=== PATIENT | male | born 1980 | race Caucasian/White ===

== ENCOUNTER 2016-06-02 08:00 | Outpatient (CLI) | payer MEDICAID | END 2016-06-02 08:01 | disposition home or self-care (01) | DX: E78.5 Hyperlipidemia, unspecified (principal) ==

== ENCOUNTER 2016-07-28 11:40 | Outpatient (CLI) | payer MEDICAID | END 2016-07-28 11:41 | disposition home or self-care (01) | DX: R30.0 Dysuria (principal); I10 Essential (primary) hypertension ==

== ENCOUNTER 2016-08-16 15:33 | Outpatient (CLI) | payer MEDICAID | END 2016-08-16 15:34 | disposition home or self-care (01) | DX: R30.0 Dysuria (principal) ==

== ENCOUNTER 2017-03-22 12:55 | Emergency (ER) | payer MEDICAID ==
[2017-03-22] MEDS ORDERED: ONDANSETRON 4 MG/2 ML VIAL IVP STA (13:01)
[2017-03-22] MEDS ORDERED: SODIUM CHLORIDE 0.9% 1,000 ML IV ONE (13:01)
[2017-03-22] MEDS ORDERED: KETOROLAC 60 MG/2 ML VIAL IVP STA (13:01)
[2017-03-22] MEDS ORDERED: HALOPERIDOL 5 MG/ML VIAL IVP ONE (13:04)
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
[2017-03-22] MEDS ORDERED: KETOROLAC 30 MG/ML VIAL ONE (13:07)
[2017-03-22] MEDS ORDERED: ONDANSETRON 4 MG/2 ML VIAL ONE (13:07)
[2017-03-22 13:20] LABS: BASOPHILS # (AUTO) 0.1 10^3/uL (0.0-0.1); BASOPHILS % (AUTO) 1.6 %; EOSINOPHILS % (AUTO) 0.4 %; HCT - HEMATOCRIT 48.3 % (42.0-52.0); HGB - HEMOGLOBIN 16.5 g/dL (14.0-18.0); LYMPHOCYTES # (AUTO) 2.9 10^3/uL (1.5-3.5); LYMPHOCYTES % (AUTO) 31.9 %; MEAN CORPUSCULAR HEMOGLOBIN 29.1 pg (27.0-31.0); MEAN CORPUSCULAR HGB CONC 34.1 g/dL (32.0-36.0); MEAN CORPUSCULAR VOLUME 85.2 fL (80.0-94.0); MEAN PLATELET VOLUME 7.4 fL (7.4-11.4); MONOCYTES # (AUTO) 0.5 10^3/uL (0.0-1.0); MONOCYTES % (AUTO) 5.8 %; NEUTROPHILS # (AUTO) 5.5 10^3/uL (1.5-6.6); NEUTROPHILS % (AUTO) 60.3 %; RED BLOOD COUNT 5.67 10^6/uL (4.70-6.10); RED CELL DISTRIBUTION WIDTH 12.5 % (12.0-15.0); UNCORRECTED WHITE BLOOD COUNT 9.1 x10^3/uL; WHITE BLOOD COUNT 9.1 x10^3/uL (4.8-10.8)
[2017-03-22] MEDS ORDERED: HALOPERIDOL 5 MG/ML VIAL ONE (13:20)
[2017-03-22] MEDS ORDERED: LORazepam 2 MG/ML SYRINGE IVP STA (13:28)
[2017-03-22] MEDS ORDERED: LIDOCAINE TOPICAL 4% 50 ML BOTTLE MM STA (13:28)
[2017-03-22] MEDS ORDERED: MAG HYDROX/AL HYDROX/SIMETH 30 ML UDC PO STA (13:28)
[2017-03-22] MEDS ORDERED: ACETAMINOPHEN 1,000 MG/100 ML 100 ML IV STA (13:28)
[2017-03-22 13:34] LABS: ALBUMIN/GLOBULIN RATIO 1.2 (1.0-2.2); BILIRUBIN,TOTAL 0.7 mg/dL (0.2-1.0); CALCIUM 10.5 mg/dL (8.5-10.3); CREATININE 1.1 mg/dL (0.6-1.2); POTASSIUM 3.7 mmol/L (3.5-5.0); TOTAL PROTEIN 8.8 g/dL (6.7-8.2)
[2017-03-22] MEDS ORDERED: LORazepam 2 MG/ML SYRINGE ONE (13:48)
[2017-03-22] MEDS ORDERED: LIDOCAINE VISCOUS 2% 15 ML UDC MM ONE (13:49)
[2017-03-22] MEDS ORDERED: MAG HYDROX/AL HYDROX/SIMETH 30 ML UDC ONE (13:49)
[2017-03-22] MEDS ORDERED: ACETAMINOPHEN 1,000 MG/100 ML 100 ML IV ONE (13:49)
[2017-03-22] MEDS ORDERED: LORazepam 0.5 MG TABLET PO STA (14:15)
[2017-03-22] MEDS ORDERED: LORazepam 0.5 MG TABLET ONE (14:31)
[2017-03-22 14:33] VITALS: BP 127/75
== END 2017-03-22 14:33 | disposition home or self-care (01) ==
LOC: ED 12:55
DX: F43.9 Reaction to severe stress, unspecified (principal); R10.84 Generalized abdominal pain; I10 Essential (primary) hypertension; F12.90 Cannabis use, unspecified, uncomplicated
CPT/HCPCS: 36415; 80053; 83690; 85025; 96365; 96375; 99283; 99284; A9270; J0131; J2060

== ENCOUNTER 2018-03-26 08:00 | Outpatient (CLI) | payer MEDICAID ==
[2018-03-26 12:44] LABS: ALBUMIN 4.3 g/dL (3.2-5.5); ALBUMIN/GLOBULIN RATIO 1.3 (1.0-2.2); ALKALINE PHOSPHATASE 66 IU/L (42-121); ALT ALANINE AMINOTRANSFERASE 62 IU/L (10-60); AST ASPARTATE AMINOTRANSFERASE 35 IU/L (10-42); BILIRUBIN,TOTAL 0.6 mg/dL (0.2-1.0); BUN - BLOOD UREA NITROGEN 17 mg/dL (6-20); CALCIUM 9.3 mg/dL (8.5-10.3); CARBON DIOXIDE - CO2 23 mmol/L (21-32); CHLORIDE 102 mmol/L (101-111); CHOL/HDL RATIO 4.8 (<5.0); CHOLESTEROL 272 mg/dL; GFR - MDRD 85 (>89); GLUCOSE 111 mg/dL (70-100); HDL CHOLESTEROL 57 mg/dL; LDL CHOLESTEROL,CALCULATED 157 mg/dL; LDL/HDL RATIO 2.8 (<3.6); SODIUM 134 mmol/L (135-145); TOTAL PROTEIN 7.6 g/dL (6.7-8.2); VLDL CHOLESTEROL 58 mg/dL
[2018-03-26 12:47] LABS: HEMOGLOBIN A1C 0.67 g/dL; HEMOGLOBIN A1C % 5.8 % (4.6-6.2)
[2018-03-26 12:51] LABS: BASOPHILS % (AUTO) 0.6 %; EOSINOPHILS # (AUTO) 0.1 10^3/uL (0.0-0.7); EOSINOPHILS % (AUTO) 1.6 %; HGB - HEMOGLOBIN 15.6 g/dL (14.0-18.0); LYMPHOCYTES # (AUTO) 2.3 10^3/uL (1.5-3.5); LYMPHOCYTES % (AUTO) 38.5 %; MEAN CORPUSCULAR HEMOGLOBIN 29.6 pg (27.0-31.0); MEAN CORPUSCULAR HGB CONC 34.2 g/dL (32.0-36.0); MEAN CORPUSCULAR VOLUME 86.8 fL (80.0-94.0); MONOCYTES # (AUTO) 0.5 10^3/uL (0.0-1.0); MONOCYTES % (AUTO) 8.7 %; NEUTROPHILS % (AUTO) 50.6 %; PLT - PLATELET COUNT 310 10^3/uL (130-450); RED BLOOD COUNT 5.26 10^6/uL (4.70-6.10); RED CELL DISTRIBUTION WIDTH 12.6 % (12.0-15.0); WHITE BLOOD COUNT 5.9 x10^3/uL (4.8-10.8)
== END 2018-03-26 08:01 | disposition home or self-care (01) ==
LOC: LAB.N 08:00
PROVIDERS: ATTEND Family Medicine
DX: E78.5 Hyperlipidemia, unspecified (principal); R73.01 Impaired fasting glucose; I10 Essential (primary) hypertension
CPT/HCPCS: 36415; 80053; 80061; 83036; 83721; 84443; 85025

== ENCOUNTER 2018-06-06 09:28 | Outpatient (CLI) | payer MEDICAID ==
--- NOTE | 2018-06-06 11:07 | XRAY Report ---
Reason: SHOULDER PAIN,LEFT Procedure Date: 06/06/2018 Accession Number: [id number] / [id number] Procedure: XR - Shoulder 2 View LT CPT Code: FULL RESULT: EXAM: LEFT SHOULDER RADIOGRAPHY EXAM DATE: 06/06/2018 10:04 AM. CLINICAL HISTORY: Shoulder pain, left. COMPARISON: None. TECHNIQUE: 3 views. FINDINGS: Bones: Normal. No fracture or bone lesion. Joints: The glenohumeral and acromioclavicular joints are normal. Soft tissues: The visualized hemithorax is unremarkable. No soft tissue swelling. IMPRESSION: Normal shoulder radiography. RADIA
== END 2018-06-06 09:29 | disposition home or self-care (01) ==
LOC: DI 09:28
PROVIDERS: ATTEND Physician Assistant Medical
DX: M25.512 Pain in left shoulder (principal)

== ENCOUNTER 2020-03-11 07:00 | Outpatient (CLI) | payer MEDICAID ==
--- NOTE | 2020-03-11 17:25 | XRAY Report ---
PROCEDURE: Tib/Fib RT INDICATIONS: RIGHT LOWER LEG PAIN TECHNIQUE: 2 views of the tibia and fibula were acquired. COMPARISON: None available FINDINGS: Bones: No fractures or dislocations. Intramedullary tibial mesha secured by proximal and distal trans verse screws. Hardware appears in appropriate position. Well-healed oblique transverse mid to distal tibia and fibular diaphyseal fractures are present with smooth bridging callus. The locations of frac ture and callus formation correspond to the patient's palpable abnormalities as indicated by areas on the films. No suspicious bony lesions. Soft tissues: No suspicious soft tissue calcifications or masses. IMPRESSION: 1. Healing tibia and fibular fractures correspond to the areas of palpable abnormality/pain. 2. No evidence of hardware complication of the tibial intramedullary mesha. Reviewed by: Rozina Alejandro MD on 03/11/2020 5:23 PM PST Approved by: Rozina Alejandro MD on 03/11/2020 5:23 PM PST Station ID: [id number]
== END 2020-03-11 23:59 | disposition home or self-care (01) ==
LOC: DI.WCP 07:00
PROVIDERS: ATTEND Family Medicine
DX: S82.221D Displaced transverse fracture of shaft of right tibia, subsequent encounter for closed fracture with routine healing (principal); S82.421D Displaced transverse fracture of shaft of right fibula, subsequent encounter for closed fracture with routine healing

== ENCOUNTER 2020-10-09 16:01 | Outpatient (CLI) | payer OTHER, MEDICAID | END 2020-10-09 16:02 | disposition critical access hospital (66) | LOC: EMS 16:01 | DX: S51.011A Laceration without foreign body of right elbow, initial encounter (principal); V20.4XXA Motorcycle driver injured in collision with pedestrian or animal in traffic accident, initial encounter; Y93.55 Activity, bike riding; Y92.410 Unspecified street and highway as the place of occurrence of the external cause | CPT/HCPCS: A0425; A0429 ==

== ENCOUNTER 2020-10-09 16:11 | Emergency (ER) | payer OTHER, MEDICAID ==
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
--- OUTSIDE RECORDS SUMMARY | 2020-10-09 16:58 | EXTERNAL MEDICAL SUMMARY RPT | Continuity of Care Document ---
:1980 Demographics Phone Unavailable Preferred Language Unknown Marital Status Unknown Jain Affiliation Unknown Race Unknown Ethnic Group Unknown Author Organization [facility] Address [address] [place] [address] Phone Allergies Encounters Medications Problems Results
--- NOTE | 2020-10-09 17:03 | XRAY Report ---
PROCEDURE: Elbow 3 View RT INDICATIONS: olecranon contusion laceration TECHNIQUE: 3 views of the elbow were acquired. COMPARISON: None FINDINGS: Bones: No fractures or dislocations. No suspicious bony lesions. Soft tissues: Soft tissue swelling is seen overlying the olecranon. A small amount soft tissue gas is seen. No radiopaque foreign bodies are seen. IMPRESSION: Olecranon laceration with soft tissue swelling and soft tissue gas. No underlying displaced fracture can be seen. Reviewed by: Derrick Perez MD on 10/09/2020 4:02 PM JOSE Approved by: Derrick Perez MD on 10/09/2020 4:02 PM JOSE Station ID: [id number]
[2020-10-09] MEDS ORDERED: ACETAMINOPHEN 325 MG TABLET PO STA (17:25)
[2020-10-09] MEDS ORDERED: BUFFERED LIDOCAINE 10 ML SYRINGE SUBQ STA (17:52)
[2020-10-09] MEDS ORDERED: TETANUS/DIPHTHERIA/PERTUSSIS 0.5 ML SYRINGE IM ONE (18:37)
[2020-10-09] MEDS ORDERED: HYDROcod/ACET 5/325 Prepack 4 PO STA (18:38)
[2020-10-09 18:47] VITALS: BP 156/95
== END 2020-10-09 19:10 | disposition home or self-care (01) ==
LOC: EDUNIT# → SUPCPDRO 16:11 → ED 16:11
DX: S51.011A Laceration without foreign body of right elbow, initial encounter (principal); S50.01XA Contusion of right elbow, initial encounter; S80.211A Abrasion, right knee, initial encounter; S60.416A Abrasion of right little finger, initial encounter; S13.4XXA Sprain of ligaments of cervical spine, initial encounter; V20.4XXA Motorcycle driver injured in collision with pedestrian or animal in traffic accident, initial encounter; Y92.410 Unspecified street and highway as the place of occurrence of the external cause; Z23 Encounter for immunization; I10 Essential (primary) hypertension
CPT/HCPCS: 12032; 73080; 90471; 90715; 99283; 99284; A9270

== ENCOUNTER 2020-10-12 14:39 | Emergency (ER) | payer OTHER, MEDICAID ==
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
[2020-10-12] MEDS ORDERED: cefTRIAXone 1 GM VIAL IVP STA (15:44)
[2020-10-12] MEDS ORDERED: KETOROLAC 30 MG/ML VIAL IVP STA (15:44)
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
[2020-10-12 17:41] VITALS: BP 140/93
== END 2020-10-12 17:41 | disposition home or self-care (01) ==
LOC: ED 14:39
DX: S50.811A Abrasion of right forearm, initial encounter (principal); S46.211A Strain of muscle, fascia and tendon of other parts of biceps, right arm, initial encounter; L03.113 Cellulitis of right upper limb; X58.XXXA Exposure to other specified factors, initial encounter; I10 Essential (primary) hypertension
CPT/HCPCS: 36415; 96374; 96375; 99284

== ENCOUNTER 2020-10-29 22:32 | Emergency (ER) | payer MEDICAID ==
--- NOTE | 2020-10-29 23:08 | ED Physician Documentation ---
PD HPI ABD PAIN - Stated complaint Stated Complaint: LT FLANK PX - Chief complaint Chief Complaint: Abd Pain - History obtained from History obtained from: Patient - History of Present Illness Timing - onset: How many days ago Timing - duration: Days (3) Timing - details: Abrupt onset, Waxing and waning (had it 3 days ago then came in brief waves. Abruptly worse this evening and persistent.) Quality: Aching, Sharp, Pain Location: LLQ Radiation: Left flank Improved by: No: Eating, Laying still, Position Worsened by: No: Eating, Moving, Position Associated symptoms: Nausea. No: Fever, Vomiting, Diarrhea Similar symptoms before: Has not had sx before Recently seen: Not recently seen Review of Systems Constitutional: denies: Fever, Chills Nose: denies: Rhinorrhea / runny nose, Congestion Throat: denies: Sore throat Respiratory: denies: Cough GI: reports: Abdominal Pain, Nausea. denies: Vomiting, Constipation, Diarrhea : denies: Dysuria Skin: denies: Rash, Lesions PD PAST MEDICAL HISTORY - Past Medical History Cardiovascular: Hypertension Respiratory: None Neuro: None Endocrine/Autoimmune: None GI: None : None HEENT: None Psych: None Musculoskeletal: None Derm: None - Past Surgical History Past Surgical History: Yes - Present Medications Home Medications: Ambulatory Orders Medication Instructions Recorded Confirmed lisinopriL [Prinivil] 40 mg PO DAILY 08/05/13 10/29/20 HYDROcod/ACETAM 5/325 [[place] 5/325] 1 - 2 tablet PO Q6H PRN #14 tablet 10/09/20 10/29/20 Mupirocin Calcium [Mupirocin] 1 applic TP TID #15 gm 10/12/20 10/29/20 HYDROcod/ACETAM 5/325 [[place] 5/325] 1 ea PO Q6H PRN #12 tablet 10/30/20 Naproxen Sodium [Naprelan] 375 mg PO BID PRN 7 Days #15 tab 10/30/20 Ondansetron Odt [Zofran] 4 mg TL Q6H PRN #10 tablet 10/30/20 Tamsulosin [Flomax] 0.4 mg PO DAILY #5 cap 10/30/20 - Allergies Allergies/Adverse Reactions: Allergies Allergy/AdvReac Type Severity Reaction Status Date / Time hydromorphone HCl * Allergy breathing Verified 10/29/20 22:42 [From Dilaudid] difficulty morphine Allergy breathing Verified 10/29/20 22:42 difficulty - Social History Does the pt smoke?: No Smoking Status: Never smoker Does the pt drink ETOH?: Yes Does the pt have substance abuse?: Yes - Immunizations Immunizations are current?: Yes - POLST Patient has POLST: No PD ED PE NORMAL - Vitals Vital signs reviewed: Yes - General General: Alert and oriented X 3, Well developed/nourished, Other (appears in pain left abdomen) - Neck Neck: Supple, no meningeal sign, No adenopathy - Cardiac Cardiac: RRR, No murmur - Respiratory Respiratory: Clear bilaterally - Abdomen Abdomen: Normal bowel sounds, Soft, Non distended, No organomegaly, Other (minimally tender without guarding left lower abd. ) - Back Back: Other (mild tender left flank. ) - Derm Derm: Normal color, Warm and dry Results - Vitals Vitals: Oxygen O2 Source Room air - Labs Labs: Laboratory Tests 10/29/20 10/29/20 10/29/20 23:00 23:00 23:45 WBC 11.8 H RBC 4.59 L Hgb 13.3 L Hct 38.9 L MCV 84.7 MCH 29.0 MCHC 34.2 RDW 11.9 L Plt Count 399 MPV 9.0 Neut # (Auto) 6.6 Lymph # (Auto) 3.6 H [place] # (Auto) 1.0 Eos # (Auto) 0.5 Baso # (Auto) 0.1 Absolute Nucleated RBC 0.00 Nucleated RBC % 0.0 Sodium 136 Potassium 3.3 L Chloride 99 L Carbon Dioxide 24 Anion Gap 13.0 BUN 16 Creatinine 1.4 H Estimated GFR (MDRD) 56 L Glucose 108 H Calcium 9.8 Total Bilirubin 0.7 AST 29 ALT 41 Alkaline Phosphatase 62 Total Protein 7.3 Albumin 4.1 Globulin 3.2 Albumin/Globulin Ratio 1.3 Lipase 26 Urine Color YELLOW Urine Clarity CLEAR Urine pH 5.5 Ur Specific [place] >=1.030 H Urine Protein NEGATIVE Urine Glucose (UA) NEGATIVE Urine Ketones NEGATIVE Urine Occult Blood LARGE H Urine Nitrite NEGATIVE Urine Bilirubin NEGATIVE Urine Urobilinogen 0.2 (NORMAL) Ur Leukocyte Esterase NEGATIVE Urine RBC 6-10 H Urine WBC 0-3 Ur Squamous Epith Cells NONE SEEN Urine Crystals 11-25 Ca Oxalate Urine Bacteria None Seen Ur Microscopic Review INDICATED Urine Culture Comments NOT INDICATED - Rads (name of study) abd/pelvic CT Radiology: Prelim report reviewed (4 mm stone distal ureter just pooching into the bladder, close to passing. ), See rad report PD MEDICAL DECISION MAKING - ED course Complexity details: re-evaluated patient (much improved down to minimal pain after meds in the ERR. ), considered differential, d/w patient Departure - Departure Disposition: 01 Home, Self Care Clinical Impression: Left sided abdominal pain, Ureterolithiasis Condition: Stable Instructions: ED Stone Renal W Colic Follow-Up: Anish Bob MD [Primary Care Provider] - Prescriptions: Tamsulosin [Flomax] 0.4 mg PO DAILY #5 cap Naproxen Sodium [Naprelan] 375 mg PO BID PRN 7 Days #15 tab PRN Reason: Pain HYDROcod/ACETAM 5/325 [[place] 5/325] 1 ea PO Q6H PRN #12 tablet PRN Reason: Pain Ondansetron Odt [Zofran] 4 mg TL Q6H PRN #10 tablet PRN Reason: Nausea / Vomiting Comments: You have a 4 mm stone at the distal ureter almost into the bladder. It is small enough and close enough to passing that you should be able to do it on its own and likely in the next day or 2. Stay well-hydrated. No need to over hydrate though. Anti-inflammatories such as naproxen twice daily with food. Tamsulosin to help reduce spasming of the ureter. Ondansetron if needed for nausea. To that add Tylenol every 4 hours if needed for pain or hydrocodone for worse pain. Recheck if not completely resolved over the next 2 to 3 days and return if significantly worse again. Discharge Date/Time: 10/30/20 02:38
[2020-10-29 23:14] LABS: BASOPHILS # (AUTO) 0.1 10^3/uL (0.0-0.1); BASOPHILS % (AUTO) 0.7 %; EOSINOPHILS # (AUTO) 0.5 10^3/uL (0.0-0.7); EOSINOPHILS % (AUTO) 4.1 %; HCT - HEMATOCRIT 38.9 % (42.0-52.0); HGB - HEMOGLOBIN 13.3 g/dL (14.0-18.0); LYMPHOCYTES # (AUTO) 3.6 10^3/uL (1.5-3.5); LYMPHOCYTES % (AUTO) 30.4 %; MEAN CORPUSCULAR HGB CONC 34.2 g/dL (32.0-36.0); MEAN CORPUSCULAR VOLUME 84.7 fL (80.0-94.0); MONOCYTES % (AUTO) 8.8 %; NEUTROPHILS # (AUTO) 6.6 10^3/uL (1.5-6.6); NEUTROPHILS % (AUTO) 55.7 %; PLT - PLATELET COUNT 399 10^3/uL (130-450); RED BLOOD COUNT 4.59 10^6/uL (4.70-6.10); RED CELL DISTRIBUTION WIDTH 11.9 % (12.0-15.0); WHITE BLOOD COUNT 11.8 x10^3/uL (4.8-10.8)
[2020-10-29 23:28] LABS: ALBUMIN 4.1 g/dL (3.2-5.5); ALBUMIN/GLOBULIN RATIO 1.3 (1.0-2.2); BILIRUBIN,TOTAL 0.7 mg/dL (0.2-1.0); CALCIUM 9.8 mg/dL (8.5-10.3); CREATININE 1.4 mg/dL (0.6-1.2); POTASSIUM 3.3 mmol/L (3.5-5.0); TOTAL PROTEIN 7.3 g/dL (6.7-8.2)
[2020-10-29] MEDS ORDERED: SODIUM CHLORIDE 0.9% 1,000 ML IV STA (23:37)
[2020-10-29] MEDS ORDERED: ONDANSETRON 4 MG/2 ML VIAL IVP STA (23:37)
[2020-10-29] MEDS ORDERED: KETOROLAC 15 MG/ML VIAL IVP STA (23:37)
[2020-10-29] MEDS ORDERED: LIDOCAINE-MPF 2% 5 ML in SODIUM CHLORIDE 0.9% 50 ML IV STA (23:38)
[2020-10-29] MEDS ORDERED: fentaNYL 100 MCG/2 ML VIAL IVP STA (23:39)
[2020-10-29] MEDS ORDERED: LIDOCAINE-MPF 2% 5 ML VIAL ONE (23:46)
[2020-10-29 23:56] LABS: BILIRUBIN,URINE NEGATIVE (NEGATIVE); GLUCOSE, URINE (UA) NEGATIVE (NEGATIVE); KETONES,URINE (UA) NEGATIVE (NEGATIVE); LEUKOCYTE ESTERASE, URINE NEGATIVE (NEGATIVE); NITRITE,URINE NEGATIVE (NEGATIVE); OCCULT BLOOD,URINE LARGE (NEGATIVE); PH,URINE 5.5 PH (5.0-7.5); PROTEIN,URINE NEGATIVE (NEGATIVE); UROBILINOGEN,URINE 0.2 (NORMAL) E.U./dL (NORMAL)
[2020-10-30 00:13] LABS: BACTERIA,URINE None Seen /HPF (None Seen); CLARITY,URINE CLEAR (CLEAR); CRYSTALS,URINE 11-25 Ca Oxalate /LPF; SQUAMOUS EPITHELIAL CELL,UR NONE SEEN (<= Few); WBC,URINE 0-3 /HPF (0-3)
[2020-10-30] MEDS ORDERED: TAMSULOSIN 0.4 MG CAPSULE PO STA (01:44)
[2020-10-30] MEDS ORDERED: oxyCODONE/ACET 5/325 Prepack 4 PO STA (01:44)
[2020-10-30] MEDS ORDERED: ONDANSETRON ODT 4 MG Prepack 2 TL PRN (01:44)
[2020-10-30] MEDS ORDERED: HYDROcod/ACET 5/325 Prepack 4 PO STA ×2 (02:10→02:26)
[2020-10-30 02:28] VITALS: BP 144/93
--- NOTE | 2020-10-30 08:32 | CT Report ---
PROCEDURE: Abdomen/Pelvis WO INDICATIONS: left flank to abd pain TECHNIQUE: Noncontrast 5 mm thick sections acquired from the diaphragms to the symphysis. 5 mm coronal and sagi ttal reformats were then performed. For radiation dose reduction, the following was used: automated exposure control, adjustment of mA and/or kV according to patient size. COMPARISON: None. FINDINGS: Image quality: Excellent. ABDOMEN: Lung bases: Lung bases are clear. Heart size is normal. Solid organs: Liver and spleen are normal in size. Gallbladder is unremarkable. Pancreas is normal in contours. No adrenal nodules. There is a 4 mm stone at the distal aspect of the left ureterovesi arianna junction, pooching into the bladder. This results in mild left hydroureter and mild left hydronep hrosis. There is perinephric stranding present on the left. The right kidney and ureter are unremarka ble. Peritoneum and bowel: Unenhanced bowel loops demonstrate normal wall thickness and caliber. No free fluid or air. Nodes and vessels: No retroperitoneal or mesenteric adenopathy by size criteria. Aorta and inferior vena cava are normal in caliber. Miscellaneous: No ventral hernias. PELVIS: Genitourinary: Bladder wall thickness is normal. Miscellaneous: No inguinal hernias or adenopathy. Bones: No suspicious bony lesions. No vertebral body compression fractures. IMPRESSION: 1. A 4 mm stone at the distal aspect of the left ureterovesical junction, pooching into the bladder, results in mild left hydroureter, mild left hydronephrosis, and left perinephric stranding. A preliminary report with the above findings was provided at the time of the study by [facility]. Reviewed by: Arnol Patricia MD on 10/30/2020 7:30 AM JOSE Approved by: Arnol Patricia MD on 10/30/2020 7:30 AM JOSE Station ID: [id number]
== END 2020-10-30 02:38 | disposition home or self-care (01) ==
LOC: ED 22:32
DX: N13.2 Hydronephrosis with renal and ureteral calculous obstruction (principal); I10 Essential (primary) hypertension
CPT/HCPCS: 36415; 74176; 80053; 81001; 83690; 85025; 96374; 96375; 99284; A9270; J7040; 81003; 87086

== ENCOUNTER 2021-01-27 07:33 | Outpatient (CLI) | payer MEDICAID ==
[2021-01-27 08:08] LABS: BASOPHILS # (AUTO) 0.1 10^3/uL (0.0-0.1); BASOPHILS % (AUTO) 0.7 %; EOSINOPHILS # (AUTO) 0.2 10^3/uL (0.0-0.7); EOSINOPHILS % (AUTO) 2.6 %; HCT - HEMATOCRIT 43.1 % (42.0-52.0); HGB - HEMOGLOBIN 14.7 g/dL (14.0-18.0); LYMPHOCYTES # (AUTO) 2.4 10^3/uL (1.5-3.5); LYMPHOCYTES % (AUTO) 26.4 %; MEAN CORPUSCULAR HEMOGLOBIN 29.2 pg (27.0-31.0); MEAN CORPUSCULAR HGB CONC 34.1 g/dL (32.0-36.0); MEAN CORPUSCULAR VOLUME 85.7 fL (80.0-94.0); MEAN PLATELET VOLUME 9.2 fL (7.4-11.4); MONOCYTES # (AUTO) 0.7 10^3/uL (0.0-1.0); MONOCYTES % (AUTO) 7.3 %; NEUTROPHILS # (AUTO) 5.8 10^3/uL (1.5-6.6); NEUTROPHILS % (AUTO) 62.6 %; PLT - PLATELET COUNT 304 10^3/uL (130-450); RED BLOOD COUNT 5.03 10^6/uL (4.70-6.10); RED CELL DISTRIBUTION WIDTH 12.2 % (12.0-15.0); WHITE BLOOD COUNT 9.2 x10^3/uL (4.8-10.8)
[2021-01-27 08:24] LABS: ALBUMIN 4.1 g/dL (3.2-5.5); ALBUMIN/GLOBULIN RATIO 1.2 (1.0-2.2); ALKALINE PHOSPHATASE 58 IU/L (42-121); ALT ALANINE AMINOTRANSFERASE 46 IU/L (10-60); AST ASPARTATE AMINOTRANSFERASE 25 IU/L (10-42); BILIRUBIN,TOTAL 0.4 mg/dL (0.2-1.0); BUN - BLOOD UREA NITROGEN 20 mg/dL (6-20); CALCIUM 9.8 mg/dL (8.5-10.3); CARBON DIOXIDE - CO2 23 mmol/L (21-32); CHLORIDE 107 mmol/L (101-111); CHOLESTEROL 269 mg/dL; CREATININE 0.8 mg/dL (0.6-1.2); GFR - MDRD 108 (>89); GLUCOSE 115 mg/dL (70-100); HDL CHOLESTEROL 45 mg/dL; LDL CHOLESTEROL,CALCULATED 145 mg/dL; LDL/HDL RATIO 3.2 (<3.6); POTASSIUM 4.3 mmol/L (3.5-5.0); SODIUM 139 mmol/L (135-145); TOTAL PROTEIN 7.4 g/dL (6.7-8.2); TRIGLYCERIDES 396 mg/dL; VLDL CHOLESTEROL 79 mg/dL
[2021-01-27 08:35] LABS: THYROID STIMULATING HORMONE 2.3 uIU/mL (0.34-5.60)
[2021-01-27 12:07] LABS: ESTIMATED AVERAGE GLUCOSE 120 mg/dL (70-100); HEMOGLOBIN A1c% 5.8 % (4.27-6.07)
== END 2021-01-27 07:34 | disposition home or self-care (01) ==
LOC: LAB 07:33
PROVIDERS: ATTEND Family Medicine
DX: I10 Essential (primary) hypertension (principal); R73.01 Impaired fasting glucose; E78.5 Hyperlipidemia, unspecified
CPT/HCPCS: 36415; 80053; 80061; 83036; 83721; 84443; 85025

== ENCOUNTER 2022-10-06 07:31 | Outpatient (CLI) | payer OTHER ==
[2022-10-06 07:49] LABS: BASOPHILS # (AUTO) 0.1 10^3/uL (0.0-0.1); BASOPHILS % (AUTO) 0.7 %; EOSINOPHILS % (AUTO) 0.4 %; HGB - HEMOGLOBIN 15.1 g/dL (14.0-18.0); LYMPHOCYTES # (AUTO) 2.3 10^3/uL (1.5-3.5); LYMPHOCYTES % (AUTO) 28.6 %; MEAN CORPUSCULAR HEMOGLOBIN 28.9 pg (27.0-31.0); MEAN CORPUSCULAR HGB CONC 33.6 g/dL (32.0-36.0); MEAN PLATELET VOLUME 9.2 fL (7.4-11.4); MONOCYTES # (AUTO) 0.4 10^3/uL (0.0-1.0); MONOCYTES % (AUTO) 4.9 %; NEUTROPHILS # (AUTO) 5.3 10^3/uL (1.5-6.6); NEUTROPHILS % (AUTO) 64.7 %; PLT - PLATELET COUNT 301 10^3/uL (130-450); RED BLOOD COUNT 5.23 10^6/uL (4.70-6.10); RED CELL DISTRIBUTION WIDTH 12.6 % (12.0-15.0); WHITE BLOOD COUNT 8.2 x10^3/uL (4.8-10.8)
[2022-10-06 08:04] LABS: ALBUMIN 4.1 g/dL (3.2-5.5); ALBUMIN/GLOBULIN RATIO 1.1 (1.0-2.2); ALKALINE PHOSPHATASE 63 IU/L (42-121); ALT ALANINE AMINOTRANSFERASE 37 IU/L (10-60); AST ASPARTATE AMINOTRANSFERASE 28 IU/L (10-42); BILIRUBIN,TOTAL 0.7 mg/dL (0.2-1.0); BUN - BLOOD UREA NITROGEN 18 mg/dL (6-20); CALCIUM 9.5 mg/dL (8.5-10.3); CARBON DIOXIDE - CO2 24 mmol/L (21-32); CHLORIDE 104 mmol/L (101-111); CHOL/HDL RATIO 4.3 (<5.0); CHOLESTEROL 270 mg/dL; CREATININE 0.9 mg/dL (0.6-1.2); GFR - MDRD 93 (>89); GLUCOSE 132 mg/dL (70-100); HDL CHOLESTEROL 63 mg/dL; LDL CHOLESTEROL,CALCULATED 184 mg/dL; LDL/HDL RATIO 2.9 (<3.6); POTASSIUM 3.9 mmol/L (3.5-5.0); SODIUM 137 mmol/L (135-145); TOTAL PROTEIN 7.7 g/dL (6.7-8.2); TRIGLYCERIDES 115 mg/dL; VLDL CHOLESTEROL 23 mg/dL
[2022-10-06 08:15] LABS: THYROID STIMULATING HORMONE 1.47 uIU/mL (0.34-5.60)
[2022-10-06 09:02] LABS: ESTIMATED AVERAGE GLUCOSE 117 mg/dL (70-100); HEMOGLOBIN A1c% 5.7 % (4.27-6.07)
== END 2022-10-06 07:32 | disposition home or self-care (01) ==
LOC: LAB 07:31
PROVIDERS: ATTEND Family Medicine
DX: I10 Essential (primary) hypertension (principal); R68.82 Decreased libido; R53.83 Other fatigue; E78.5 Hyperlipidemia, unspecified
CPT/HCPCS: 36415; 80053; 80061; 83036; 83721; 84403; 84443; 85025

== ENCOUNTER 2023-04-05 09:51 | Outpatient (CLI) | payer OTHER ==
[2023-04-06 19:07] LABS: FREE TESTOSTERONE(DIRECT) 10.8 pg/mL (6.8-21.5)
== END 2023-04-05 09:52 | disposition home or self-care (01) ==
LOC: LAB 09:51
PROVIDERS: ATTEND Family Medicine
DX: R89.1 Abnormal level of hormones in specimens from other organs, systems and tissues (principal)
CPT/HCPCS: 36415; 84402; 84403

== ENCOUNTER 2023-06-26 10:51 | Emergency (ER) | payer OTHER ==
--- NOTE | 2023-06-26 11:17 | ED Physician Documentation ---
PD HPI UPPER EXT INJURY - Stated complaint Stated Complaint: RT ELBOW PX - Chief complaint Chief Complaint: Ext Problem - Additonal information Additional information: 42-year-old male presents emergency department for right elbow pain. Patient says that he was bowling this weekend he was using a larger bowling ball than he normally does and as he was extending his arm he felt a popping sensation to his elbow. He will do couple more times after that but noticed the next day severe pain and swelling to the right elbow. He still has full range of motion he rested it for couple days and went back to work today. 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 Patient Dors is in pain to the lateral portion of his elbow radiating down to his forearm and hand. He does have full range of motion with some bony tenderness. PD PAST MEDICAL HISTORY - Past Medical History Cardiovascular: Hypertension Respiratory: None Neuro: None Endocrine/Autoimmune: None GI: None : None HEENT: None Psych: None Musculoskeletal: None Derm: None - Past Surgical History Past Surgical History: Yes - Present Medications Home Medications: Ambulatory Orders Medication Instructions Recorded Confirmed lisinopriL [Prinivil] 40 mg PO DAILY 08/05/13 10/29/20 Gabapentin [Neurontin] 100 mg PO TID #15 cap 06/26/23 Naproxen [EC-Naproxen] 500 mg PO BID PRN #30 cap 06/26/23 - Allergies Allergies/Adverse Reactions: Allergies Allergy/AdvReac Type Severity Reaction Status Date / Time hydromorphone HCl * Allergy breathing Verified 06/26/23 11:10 [From Dilaudid] difficulty morphine Allergy breathing Verified 06/26/23 11:10 difficulty - Social History Does the pt smoke?: No Smoking Status: Never smoker Does the pt drink ETOH?: Yes Does the pt have substance abuse?: Yes - Immunizations Immunizations are current?: Yes - POLST Patient has POLST: No PD ED PE NORMAL - Vitals Vital signs reviewed: Yes - General General: Alert and oriented X 3, No acute distress, Well developed/nourished - Derm Derm: Normal color, Warm and dry, No rash - Extremities Extremities: Other (Right elbow: tenderness to the lateral epicondyle with mild inflammation, full ROM with no crepitus or clicking, tenderness with Right elbow ROM with resistence.) - Psych Psych: Normal mood Results - Vitals Vitals: Vital Signs - 24 hr 06/26/23 11:02 Temperature 36.6 C Heart Rate 95 Respiratory 16 Rate Blood Pressure 149/101 H O2 Saturation 100 Oxygen O2 Source Room air - Rads (name of study) right elbow Xray Relevant Findings:: Final report received, EMP independent interpretation of test, Other (no acute fracture, dislocations, normal alignment) PD Medical Decision Making - ED course ED course: 42-year-old male presents emergency department for right elbow pain. Patient says he has been having right elbow pain but following up today has exacerbated the pain and describes it as a sharp shooting burning sensation. X-rays were complete which did not reveal any fractures or dislocations. There was a mild olecranon enthesophyte which tells me he could be having some chronic right elbow issues exacerbated today with a fall. Given that the pain is over the lateral epicondyle and that patient is experiencing lateral epicondylitis. An Leeroy wrap was placed to the right elbow to help with inflammation and swelling and discomfort he was given naproxen and gabapentin here in the ER and told to follow-up with Ortho outpatient. Patient given return precautions and told how to manage elbow at home. Departure - Departure Clinical Impression: Lateral epicondylitis (tennis elbow) Qualifiers: Laterality: right Qualified Code(s): M77.11 - Lateral epicondylitis, right elbow Instructions: Lateral Epicondylitis Follow-Up: [facility] [Provider Group] Prescriptions: RX: Naproxen [EC-Naproxen] 500 mg PO BID PRN #30 cap PRN Reason: Pain 1-4 RX: Gabapentin [Neurontin] 100 mg PO TID #15 cap Comments: Thank you for trusting us with your care we have completed x-rays which does show a very mild bone spur on your olecranon process. I does not show any fractures or dislocations. As we discussed the believe that you are experiencing something called lateral epicondylitis also known as tennis elbow. I would strongly encourage you to follow-up with Ortho for further evaluation of this. Make sure that you are continuing to do some gentle range of motion exercises to that right elbow while also resting it icing it for 20 minutes at a time and keeping elevated above your heart especially when you are sleeping. I have sent a prescription of naproxen and gabapentin to the pharmacy here in [place]. You can take 100 mg of gabapentin every 8 hours or 3 times a day as needed for pain after 2 to 3 days you can double the dose to 200 mg every 8 hours for pain. For your naproxen you can take 500 mg twice a day. Do not take naproxen with ibuprofen or any other NSAIDs. Wishing you a speedy recovery. Forms: PCP List, Activity restrictions
[2023-06-26] MEDS: ACETAMINOPHEN 325 MG TABLET PO STA (11:35)
[2023-06-26] MEDS: KETOROLAC 30 MG/ML VIAL IM STA (11:35)
[2023-06-26] MEDS: GABAPENTIN 100 MG CAPSULE PO STA (11:35)
--- NOTE | 2023-06-26 11:59 | XRAY Report ---
PROCEDURE: Elbow 1-2V RT INDICATIONS: right lateral elbow pain TECHNIQUE: 2 views of the elbow were acquired. COMPARISON: 10/09/2020 FINDINGS: Bones: No displaced fracture. No dislocation. Mild olecranon enthesophyte. Soft tissues: No suspicious calcifications. No significant joint effusion. IMPRESSION: No acute abnormality. Mild olecranon enthesophyte. If there is high concern for further derangement, consider MRI evaluation. Reviewed by: Martín Banda MD on 06/26/2023 11:58 AM PST Approved by: Martín Banda MD on 06/26/2023 11:58 AM PST Station ID: [id number]
[2023-06-26 12:36] VITALS: BP 148/103; O2SAT 98
== END 2023-06-26 12:36 | disposition home or self-care (01) ==
LOC: ED 10:51
DX: M77.11 Lateral epicondylitis, right elbow (principal); I10 Essential (primary) hypertension
CPT/HCPCS: 73070; 96372; 99283; 99284; A9270